=== PATIENT | female | born 1995 | race Caucasian/White ===

== ENCOUNTER 2016-04-10 10:19 | Emergency (ER) | payer SELFPAY ==
[~2016-04-10 10:19] MED LIST: ALBUTEROL0.09 MG/A2 INH; ANAPROX DS550 MG PO; AUGMENTIN 875 M1 TAB PO; CLARITIN10 MG PO; CORTISPORIN 1%-10 M1 OT; CRYSELLE PO; HYDROCODONE BIT1 T11 PO; MINASTRIN 24 F1 EACH PO; Motrin,Rufen800 MG PO; NAPROSYN500 MG PO; NKHM; PROTONIX40 MG PO; TOPICORT0.25% TP; ULTRAM50 MG PO; VIBRAMYCIN100 MG PO; WYMOX500 MG PO; ZANTAC 150150 MG PO; ZOFRAN ODT4 MG SL
[2016-04-10 11:19] LABS: BASO % 0.4 % (0.0-1.0); EOS # 0.1 10*3/uL (0.0-0.4); EOS % 1.8 % (1.0-4.0); HEMATOCRIT 39.4 % (37.0-47.0); HEMOGLOBIN 13.1 g/dl (12.0-16.0); LYMPH # 1.5 10*3/uL (1.3-4.4); LYMPH % 22.1 % (27.0-41.0); MEAN CELL VOLUME 91.4 fl (81.0-99.0); MEAN CORPUSCULAR HGB 30.4 pg (27.0-31.0); MEAN CORPUSCULAR HGB CONC 33.2 g/dl (33.0-37.0); MEAN PLATELET VOLUME 11.1 fl (9.6-12.3); MONO # 0.4 10*3/uL (0.1-1.0); MONO % 6.3 % (3.0-9.0); NEUT # 4.6 10*3/uL (2.3-7.9); NEUT % 69.1 % (47.0-73.0); PLATELET COUNT AUTOMATED 293 10*3/uL (130-400); RED BLOOD COUNT 4.31 10*6/uL (4.10-5.10); WHITE BLOOD COUNT 6.7 10*3/uL (4.8-10.8)
[2016-04-10 11:35] LABS: BILIRUBIN NEGATIVE (NEGATIVE); BLOOD NEGATIVE (NEGATIVE); CLARITY CLEAR (CLEAR); COLOR YELLOW (YELLOW); GLUCOSE NEGATIVE (NEGATIVE); KETONE NEGATIVE (NEGATIVE); LEUKO ESTERASE TRACE (NEGATIVE); NITRITE NEGATIVE (NEGATIVE); PROTEIN NEGATIVE (NEGATIVE); UROBILINOGEN 0.2 E.U./dl (0.2-1.0)
[2016-04-10 11:36] LABS: BUN 11 mg/dl (7-24); CARBON DIOXIDE 28 mmol/L (21-32); CHLORIDE 103 mmol/L (98-107); EST GLOM FILT AFRICAN AMERICAN > 60 ml/min; GLUCOSE 86 mg/dL (65-99); POTASSIUM 3.9 mmol/L (3.5-5.1); SODIUM 139 mmol/L (136-145)
[2016-04-10 11:41] LABS: BACTERIA TRACE; URINE REFLEX COMMENT YES (NO)
[2016-04-10] MEDS ORDERED: CLARITIN10 MG PO (12:01)
== END 2016-04-10 12:27 | disposition home or self-care (01) ==
LOC: ED 10:19
PROVIDERS: Nurse Practitioner Family
DX: S91.301A Unspecified open wound, right foot, initial encounter (principal); H65.193 Other acute nonsuppurative otitis media, bilateral; J02.9 Acute pharyngitis, unspecified; K21.9 Gastro-esophageal reflux disease without esophagitis; F17.200 Nicotine dependence, unspecified, uncomplicated; X58.XXXA Exposure to other specified factors, initial encounter; Y93.9 Activity, unspecified; Y92.9 Unspecified place or not applicable; Y99.9 Unspecified external cause status

== ENCOUNTER 2016-06-22 07:44 | Emergency (ER) | payer SELFPAY ==
[~2016-06-22] VITALS: Wt 113.4 kg
[2016-06-22 08:19] LABS: BASO % 0.2 % (0.0-1.0); EOS # 0.2 10*3/uL (0.0-0.4); EOS % 2.6 % (1.0-4.0); HEMATOCRIT 38.6 % (37.0-47.0); HEMOGLOBIN 13.1 g/dl (12.0-16.0); LYMPH # 2.2 10*3/uL (1.3-4.4); LYMPH % 23.3 % (27.0-41.0); MEAN CELL VOLUME 89.8 fl (81.0-99.0); MEAN CORPUSCULAR HGB 30.5 pg (27.0-31.0); MEAN CORPUSCULAR HGB CONC 33.9 g/dl (33.0-37.0); MONO # 0.6 10*3/uL (0.1-1.0); MONO % 6.9 % (3.0-9.0); NEUT # 6.2 10*3/uL (2.3-7.9); NEUT % 66.7 % (47.0-73.0); PLATELET COUNT AUTOMATED 275 10*3/uL (130-400); RED CELL DISTRI WIDTH 13.2 % (0-14.5); WHITE BLOOD COUNT 9.3 10*3/uL (4.8-10.8)
[2016-06-22 08:30] LABS: BUN 15 mg/dl (7-24); CARBON DIOXIDE 27 mmol/L (21-32); CHLORIDE 106 mmol/L (98-107); EST GLOM FILT AFRICAN AMERICAN > 60 ml/min; GLUCOSE 80 mg/dL (65-99); POTASSIUM 3.8 mmol/L (3.5-5.1); SODIUM 140 mmol/L (136-145)
[2016-06-22 08:31] LABS: BILIRUBIN NEGATIVE (NEGATIVE); BLOOD NEGATIVE (NEGATIVE); CLARITY CLOUDY (CLEAR); COLOR YELLOW (YELLOW); GLUCOSE NEGATIVE (NEGATIVE); KETONE NEGATIVE (NEGATIVE); LEUKO ESTERASE NEGATIVE (NEGATIVE); NITRITE NEGATIVE (NEGATIVE); PH 5.5 (5.0-9.0); PROTEIN NEGATIVE (NEGATIVE); SPECIFIC GRAVITY >= 1.030 (1.005-1.030)
[2016-06-22 08:38] LABS: BACTERIA TRACE
[2016-06-22 08:40] LABS: URINE REFLEX COMMENT NO (NO)
[2016-06-22] MEDS ORDERED: Motrin,Rufen800 MG PO (10:12)
== END 2016-06-22 11:28 | disposition home or self-care (01) ==
LOC: ED 07:44
PROVIDERS: Emergency Medicine
DX: R10.11 Right upper quadrant pain (principal); R10.12 Left upper quadrant pain; F17.200 Nicotine dependence, unspecified, uncomplicated; K21.9 Gastro-esophageal reflux disease without esophagitis; Z79.899 Other long term (current) drug therapy

== ENCOUNTER 2016-11-14 18:26 | Emergency (ER) | payer SELFPAY ==
[~2016-11-14] VITALS: Ht 160 cm; Wt 113.4 kg
[2016-11-14 18:31] VITALS: BP 117/58
== END 2016-11-14 19:48 | disposition home or self-care (01) ==
LOC: ED 18:26
DX: S93.402A Sprain of unspecified ligament of left ankle, initial encounter (principal); S86.912A Strain of unspecified muscle(s) and tendon(s) at lower leg level, left leg, initial encounter; F17.200 Nicotine dependence, unspecified, uncomplicated; X50.1XXA Overexertion from prolonged static or awkward postures, initial encounter; Y93.89 Activity, other specified; Y92.89 Other specified places as the place of occurrence of the external cause; Y99.8 Other external cause status

== ENCOUNTER 2017-02-26 21:57 | Emergency (ER) | payer SELFPAY ==
[~2017-02-26] VITALS: Ht 160 cm; Wt 113.4 kg
== END 2017-02-27 01:12 | disposition home or self-care (01) ==
LOC: ED 21:57
DX: S96.812A Strain of other specified muscles and tendons at ankle and foot level, left foot, initial encounter (principal); K21.9 Gastro-esophageal reflux disease without esophagitis; W22.8XXA Striking against or struck by other objects, initial encounter; Y93.89 Activity, other specified; Y92.89 Other specified places as the place of occurrence of the external cause; Y99.8 Other external cause status